=== PATIENT | male | born 1950 | race Caucasian/White ===

== ENCOUNTER 2023-02-18 01:59 | Day surgery (SDC) | payer MEDICARE, SELFPAY ==
--- NOTE | 2023-02-08 10:44 | PC.NURSE ---
Addendum entered by Sussy Meza RN 02/10/23 09:44: SPOKE WITH PT, INSTRUCTED TO REMAIN ON ASPIRIN BUT NOT TO TAKE IT THE MORNING OF SURGERY. Original Note: Report to the Outpatient Waiting Room, entrance under the [facility] located off [facility], at time __1000 on date _02/18/23 . Planned Procedure Time: _1200 . Time changes happen often and if your time is changed the preop area will call you the afternoon before. - You and your visitor will be asked to self-screen and do not enter if you have any COVID symptoms. - A mask is optional within the hospital at this time. Patients may have clear liquids (water, carbonated beverages, clear teas, apple juice) until 3 hours prior to surgery with a maximum of 20 ounces. - No food from midnight until time of surgery - Infants may have breast milk until 4 hours before surgery, infant formula 6 hours prior to surgery. - Children will be allowed to drink immediately following surgery. If applicable, please bring a bottle or sippy cup to assist with drinking. Juice, water, soda, and popsicles are readily available. For infants on formula, please bring formula the day of surgery. Pacifiers are allowed. Take the following medications with a SIP of water the morning of surgery: __CARVEDILOL, CARBIDOPA-LEVODOPA,ESCITALOPRAM DO NOT STOP ANY OF YOUR OTHER PRESCRIPTION MEDICATIONS PRIOR TO SURGERY ?EXCEPT THE FOLLOWING Medications to discontinue per physician ____PT TO CALL DR JOHNSON REGARDING ASPIRIN 325 MG ____ALL VITAMINS 3 DAYS PRE OP LAST DOSE 02/14/23 HIBICLENS SHOWER MORNING OF SURGERY Please no make-up, nail trinidadian, hairspray, perfume, deodorant, or body powder the day of surgery. No jewelry (including any body piercings) or valuables the day of surgery, leave them at home. Please take a shower or bath the night before, or the morning of, surgery with an antibacterial soap. Wear comfortable, loose fitting clothing. Children are encouraged to wear pajamas. - Jewelry must be removed prior to entering the operating room. Rings and piercings that are not removed may be cut off. - The hospital will not accept responsibility for valuables. - Please leave all valuables, including medications, at home the day of surgery. If you are going home after surgery, a licensed pizza driver must drive you home. - NO public transportation without another adult if you receive anesthesia. - We recommend that an adult stay with you for 24 hours following discharge. - We also recommend that you do not drive, make important decision, drink alcoholic beverages, or take any drugs that were not prescribed by your health care provider for at least 24 hours after your discharge time Follow any additional instructions given to you from your surgeon. If you or anyone in your household have experienced Covid symptoms in the past week, please notify your surgeon or the nurse liaison at the phone number below for possible testing. Telephone instructions given to __PATIENT AND KATHY and asked if any additional questions and then verbalized understanding. Patient advised to call surgeon office or pre surgery nurse liaison [phone] if any additional questions.
[2023-02-08 11:43] VITALS: BMI 25.8
--- NOTE | 2023-02-18 07:31 | WPDANESEPPF ---
Anes - Initial Pre Proc Eval Procedure: Operation Date: 02/18/23 12:00 Proposed Procedures p Left Inguinal Hernia Repair - Jb Reyes MD Date/Time: 02/18/23 07:31 Surgeon: Jb Reyes MD Pre Op Diagnosis: left inguinal hernia Patient Data Age: 72 Gender: M Height: 1.78 m Weight: 81.65 kg Allergies Allergy/AdvReac Type Severity Reaction Status Date / Time No Known Allergies Allergy Verified 02/18/23 09:59 Home Medications Medication Instructions Recorded Confirmed Type aspirin 325 mg tablet 325 mg PO DAILY 02/08/23 02/18/23 History atorvastatin 40 mg tablet 40 mg PO DAILY 02/08/23 02/08/23 History carbidopa 25 mg-levodopa 100 mg 1 tablet PO QHS 02/08/23 02/18/23 History disintegrating tablet carvedilol 3.125 mg tablet 3.125 mg PO Q12H 02/08/23 02/18/23 History cholecalciferol (vitamin D3) 25 25 mcg PO DAILY 02/08/23 02/18/23 History mcg (1,000 unit) tablet escitalopram oxalate 10 mg tablet 10 mg PO DAILY 02/08/23 02/08/23 History lisinopril 5 mg tablet 5 mg PO DAILY 02/08/23 02/08/23 History Patient hx anesthesia problems: none Family hx anesthesia problems: none Results Review: All pre-operative results and documents have been reviewed as part of the pre-operative evaluation. [facility] Past Medical History Medical History (Updated 02/08/23 @ 09:33 by CECILIO Painting) Anxiety High cholesterol Hypertension Kidney stones Parkinsons disease Family History Family History Father Heart disease Mother Heart disease Other Cerebrovascular accident Hypertension Social History Social History Smoking packs per day: 1 Smoking cigarettes per day: 20.0 Years smoked: 20 Smoking pack-years: 20.00 Smoking status: Former smoker Tobacco type: cigarettes Smoking end date: 09/06/89 Alcohol intake: current Drinks per week: 7 Alcohol use details: ONE BEER DAILY Living arrangements: with family Occupation/Education: retired Spiritual care concerns: No Anes - Eval Final PreProcedure Day of Procedure 02/18/23 07:31 Patient weight: normal Heart: regular rate and rhythm Lungs: clear to auscultation and normal air movement Airway: Mallampati scale class II Neurological: alert and oriented Last oral intake: >/= 8 hours ASA classification: III Emergent: no Anesthetic plan: proceed Anesthesia type and monitoring: general GIVS Results Review: All pre-operative results and documents have been reviewed as part of the pre-operative evaluation. Informed Consent: The patient's anesthetic plan and its attendant risks and benefits were discussed with the patient/family/POA. Questions were solicited and answers provided to the satisfaction of the patient/family/POA.
[2023-02-18 09:45] VITALS: BMI 25.0
[2023-02-18] MEDS: LACTATED RINGERS 1,000 ML 30 ML IV CONT (10:20)
[2023-02-18] MEDS: ACETAMINOPHEN 500 MG TABLET 1000 MG PO (10:28)
[2023-02-18] MEDS: KETOROLAC 15 MG/ML VIAL (*BKC) IV PUSH (10:28)
[2023-02-18 10:35] VITALS: BP 157/66; PULSE 51; RESP 16; TEMP 36.8; O2SAT 100
--- NOTE | 2023-02-18 11:56 | SUR.PREOP ---
pt informed delay in procedure
--- NOTE | 2023-02-18 12:18 | WPDHPUPDATE1 ---
History and Physical Update Update Date/Time: 02/18/23 12:18 History and Physical has been reviewed, including an updated exam of the patient. There are NO changes in the patient's condition. Risks, benefits, and alternatives have been discussed and questions answered. Patient agrees to proceed with procedure.
[2023-02-18] MEDS: ceFAZolin 2 GM/D5W 50 ML 2 GM/50 ML BAG IVPB (12:52)
[2023-02-18] MEDS: LIDO 1%/EPINEPHRINE 1:100,000 50 ML VIAL INFILTRATE (13:23)
[2023-02-18 14:00] VITALS: BP 117/62; PULSE 54; RESP 12; O2SAT 94
--- NOTE | 2023-02-18 14:25 | W.PM.PROC2 ---
Procedure Note - Detailed Date of Procedure 02/18/23 Pre-op Diagnosis left inguinal hernia Post-op Diagnosis Same Procedure Performed Left inguinal hernia repair with large PerFix Light plug and patch Surgeon Jb Reyes MD [employer] Plant Attendant ELICEO Tompkins Anesthesia General (G IV S), Local (0.5% Marcaine with epinephrine) and Other (Xaracoll) Indications Patient is a 72-year-old man with Parkinson's disease and hypertension. He has a symptomatic, reducible, left inguinal hernia. He is taken to surgery now for repair Findings This was a direct left inguinal hernia defect was about 2 cm. Description of Procedure Patient was checked in the preoperative holding area. He was then taken to surgery and anesthesia was introduced. The left groin and genitalia were prepped and draped. The proposed incision was marked on the skin. Local was infiltrated into the skin and the deeper subcutaneous tissues. Incision was made dissection was carried down through the subcutaneous. Crossing veins were cauterized and divided. We continued our dissection through Ashwini's fascia and down to the external oblique aponeurosis. The aponeurosis was exposed as was the external ring. I infiltrated additional local deep to the aponeurosis. The aponeurosis was then opened laterally and extended medially through the external ring. The leaves of the aponeurosis were carefully dissected free from the underlying spermatic cord and inguinal canal contents. The ileoinguinal nerve was left attached to the spermatic cord and was carefully preserved throughout the surgery. We dissected medially at the pubic tubercle and were able to encircle the spermatic cord with a [place] drain. The cord was mobilized then back to the internal ring. Dissection in the anteromedial aspect of the cord revealed the hernia. This was a direct hernia but was still intimately associated with the cord. The direct defect was very lateral being right up against the inferior epigastric vessels but just medial to them. We dissected the hernia sac out circumferentially and dissected it down to its neck. I then divided through the transversalis fascia just above the neck with the cautery. This was done circumferentially around the lower most aspect of the hernia sac. The hernia sac was then dunked into the retroperitoneum. A large PerFix Light plug was then placed in the defect. The plug was sutured securely to the transversalis fascia with interrupted 3-0 Vicryl suture. I then cut the patch to the appropriate size and placed it over the inguinal canal floor. The lateral leaves were passed beyond the cord. The 1st piece of Xaracoll was then placed over the patch. We closed the external oblique aponeurosis with interrupted 3-0 Vicryl suture. The 2nd piece of Xaracoll was placed over the aponeurosis. Ashwini's fascia was then closed with interrupted 3-0 Vicryl suture. The last piece of Xaracoll was placed in the subcutaneous. The skin was loosely approximated with subcuticular interrupted 4-0 Vicryl suture. The skin was then finally closed with a running 4-0 Monocryl skin suture. Wound was dressed with Exofin surgical adhesive. Patient was awakened and taken to recovery in good condition. Sponge needle counts were correct x2. Implants Large PerFix Light plug and patch, Xaracoll Estimated Blood Loss -5.0 Drains No Packing No Pathology None sent Complications No immediate complications Condition Stable Disposition Same day [facility] Billing Surgery - Charge Forward: Surgery Billing (Left inguinal hernia repair)
[2023-02-18 14:30] VITALS: BP 113/58; PULSE 51; RESP 12; O2SAT 93
[2023-02-18 15:00] VITALS: BP 164/79; PULSE 52
[2023-02-18 15:25] VITALS: BP 158/68; PULSE 54
== END 2023-02-18 15:34 | disposition home or self-care (01) ==
PROVIDERS: PCP Pediatrics; Visit Provider Surgery
PROC: (CPT 49505; principal; 2023-02-18 12:00)
DX: K40.90 Unilateral inguinal hernia, without obstruction or gangrene, not specified as recurrent (principal); G20 Parkinson's disease; I10 Essential (primary) hypertension; E78.00 Pure hypercholesterolemia, unspecified; F41.9 Anxiety disorder, unspecified; Z87.891 Personal history of nicotine dependence; Z79.82 Long term (current) use of aspirin
CPT/HCPCS: 49505; A9270; C1781; J0690; J1885; J2250; J2270; J2405; J2704; J3010; J7120

== ENCOUNTER → 2023-03-25 09:44 | Outpatient (CLI) | payer MEDICARE, SELFPAY ==
--- NOTE | ~2023-03-25 | CT_ITS ---
EXAMINATION: CT soft tissue neck w con DATE: 03/25/2023 10:17 INDICATION: Other diseases of salivary glands. Parotid gland mass. TECHNIQUE: Computed tomography (CT) of the neck was performed with 75 mL Omnipaque-350 intravenous co ntrast. Automated exposure control and iterative reconstruction technique were employed. The dose-francisca gth product was 379.18 mGy-cm. COMPARISON: None FINDINGS: There is a 2.8 cm mass in left parotid gland. There are no pathologically enlarged lymph no ginna. There is plaque in the proximal internal carotid arteries with 0% stenosis relative to normal di stal artery lumen diameters. There is severe cervical spondylosis. IMPRESSION: 1. 2.8 cm mass in left parotid gland. The differential diagnosis includes benign mixed tumor, Warthin tumor, and less likely luis metastatic disease or primary malignancy. Ultrasound-guided fine-needle aspiration is recommended. Reviewed, dictated and finalized at location A. IMPRESSION: 1. 2.8 cm mass in left parotid gland. The differential diagnosis includes benig n mixed tumor, Warthin tumor, and less likely luis metastatic disease or prima ry malignancy. Ultrasound-guided fine-needle aspiration is recommended.
[2023-03-25 10:03] LABS: Estimated Glomerular Filt Rate 60
== END ==
PROVIDERS: PCP Pediatrics; Visit Provider Otolaryngology
DX: K11.8 Other diseases of salivary glands (principal)
CPT/HCPCS: 70491; Q9967

== ENCOUNTER 2023-04-29 12:14 | Outpatient (CLI) | payer MEDICARE, SELFPAY ==
--- NOTE | ~2023-04-29 | US_ITS ---
EXAMINATION: US FNA w image guidance DATE: 04/29/2023 13:41 INDICATION: Left parotid mass. TECHNIQUE: The procedure and its benefits and risks were discussed with the patient. Risks specifically discusse d included bleeding. The patient verbalized understanding of the risks and agreed to proceed. The nec k was prepped and draped in the usual sterile manner. 1% lidocaine was used for local anesthesia. 6 passes were made with a 25G needle into the lesion under ultrasound guidance. There were no immedia te complications. FINDINGS: Grayscale ultrasound images demonstrate needles advanced into a 3.1 cm hypoechoic mass in left paroti d gland for biopsy. IMPRESSION: 1. Ultrasound-guided fine needle aspiration of a 3.1 cm left parotid mass. Reviewed, dictated and finalized at location A.
== END 2023-04-29 12:15 | disposition home or self-care (01) ==
PROVIDERS: PCP Pediatrics; Visit Provider Otolaryngology
DX: K11.8 Other diseases of salivary glands (principal)
CPT/HCPCS: 10005; 88108; 88305